=== PATIENT | female | born 1985 | race Caucasian/White ===

== ENCOUNTER 2016-11-11 16:18 | Emergency (ER) | payer OTHER | END 2016-11-11 18:57 | disposition left against medical advice (07) | LOC: ER1 16:18 | DX: Z53.21 Procedure and treatment not carried out due to patient leaving prior to being seen by health care provider (principal) | CPT/HCPCS: 99281 ==

== ENCOUNTER 2016-11-12 09:32 | Emergency (ER) | payer OTHER ==
[2016-11-12 11:16] LABS: HEMOGLOBIN 12.6 gm/dl (12.3-15.3); RED BLOOD COUNT 4.5 M/UL (4.00-5.10); WHITE BLOOD COUNT 7.7 K/UL (4.5-11.0)
[2016-11-12 11:49] LABS: BUN/CREATININE RATIO 12 (0-10)
== END 2016-11-12 13:20 | disposition home or self-care (01) ==
LOC: ER1 09:32
PROVIDERS: Specialist/Technologist Athletic Trainer
DX: N39.0 Urinary tract infection, site not specified (principal); I10 Essential (primary) hypertension; F17.200 Nicotine dependence, unspecified, uncomplicated; Z98.51 Tubal ligation status; Z79.899 Other long term (current) drug therapy
CPT/HCPCS: 36415; 80053; 81001; 84702; 84703; 85025; 99284

== ENCOUNTER 2020-09-05 06:12 | Emergency (ER) | payer OTHER ==
[~2020-09-05 06:12] MED LIST: FLEXERIL 10 MG10 MG PO; IBUPROFEN600 MG PO; LODINE CAP 300300 MG PO; OMNICEF 300 MG300 MG PO; ZOFRAN ODT 4 MG4 MG SL; ZOFRAN4 MG PO
[2020-09-05 06:51] LABS: HEMOGLOBIN 10.6 gm/dl (12.3-15.3); RED BLOOD COUNT 4.34 M/UL (4.00-5.10); WHITE BLOOD COUNT 9.3 K/UL (4.5-11.0)
[2020-09-05 07:17] LABS: BUN/CREATININE RATIO 15 (0-10)
[2020-09-05] MEDS ORDERED: PRILOSEC OTC20 MG PO (09:18)
[2020-09-05] MEDS ORDERED: MACROBID 100 M100 M1 PO (09:19)
[2020-09-05] MEDS ORDERED: K-DUR TAB 20 M20 MEQ PO (09:35)
== END 2020-09-05 10:00 | disposition home or self-care (01) ==
LOC: ER1 06:12
PROVIDERS: Emergency Medicine
DX: K20.90 Esophagitis, unspecified without bleeding (principal); N39.0 Urinary tract infection, site not specified; I10 Essential (primary) hypertension; F17.210 Nicotine dependence, cigarettes, uncomplicated
CPT/HCPCS: 80053; 81001; 84703; 85025; 87077; 87086; 87186; 99284; Q9967

== ENCOUNTER 2020-09-13 19:35 | Emergency (ER) | payer OTHER ==
[~2020-09-13 19:35] MED LIST changes: +K-DUR TAB 20 M20 MEQ PO; +MACROBID 100 M100 M1 PO; +PRILOSEC OTC20 MG PO
[2020-09-13 20:42] LABS: HEMOGLOBIN 10.9 gm/dl (12.3-15.3); RED BLOOD COUNT 4.44 M/UL (4.00-5.10); WHITE BLOOD COUNT 10.1 K/UL (4.5-11.0)
[2020-09-13 20:58] LABS: BUN/CREATININE RATIO 8 (0-10)
== END 2020-09-13 22:00 | disposition home or self-care (01) ==
LOC: ER1 19:35
PROVIDERS: Physician Assistant
DX: K59.00 Constipation, unspecified (principal); I10 Essential (primary) hypertension; F17.200 Nicotine dependence, unspecified, uncomplicated; Z79.899 Other long term (current) drug therapy
CPT/HCPCS: 80053; 81001; 84703; 85025; 96374; 96375; 99284